=== PATIENT | male | born 1960 | race Caucasian/White ===

== ENCOUNTER 2020-12-12 16:56 | Observation (INO) ==
[2020-12-12 18:10] LABS: Basophils # 0.1 10*3/uL (0.0-0.2); Basophils % 0.3 % (0.0-0.8); Eosinophils # 0.1 10*3/uL (0.0-0.87); Eosinophils % 0.2 % (0.00-10.9); Hematocrit 38.6 VOL% (42.0-52.0); Hemoglobin 13.6 GM/DL (14.0-18.0); Immature Granulocytes % 0.5 %; Immature Granulocytes Absolute 0.11 #; Lymphocytes # 1.5 10*3/uL (1.4-4.0); Lymphocytes % 7.4 % (21.2-54.2); Mean Corpuscular HGB Conc 35.2 GM/DL (32-36); Mean Corpuscular Volume 99.7 FL (87-102); Mean Platelet Volume 9.3 FL (9.6-12.0); Monocytes % 7.4 % (1.7-12.7); Neutrophils % 84.2 % (38.7-73.9); Platelet Count 269 T/CUMM (130-400); Red Blood Count 3.87 MC/CUMM (3.8-5.5); Red Cell Distribution Width 14.1 % (9.3-17.3); White Blood Count 20.8 T/CUMM (4-12)
[2020-12-12 18:31] LABS: Albumin 3.8 G/DL (3.4-5.0); Bilirubin,Total 0.9 MG/DL (0.20-1.00); Calcium 9.1 MG/DL (8.5-10.1); Osmolality,Calculated 262.4 MOS/KG (273-304); Potassium 3.8 MMOL/L (3.5-5.1); Total Protein 7.4 G/DL (6.4-8.2)
[2020-12-12 18:52] LABS: Anisocytosis 2+; Atypical Lymphocytes 1+; Band Neutrophils 8 % (0-10); Lymphocytes 6 % (20-55); Macrocytosis 2+; Microcytosis 1+; Platelet Estimate Normal; Polychromasia 1+; Segmented Neutrophils 82 % (50-85); Total Cells Counted 100
[2020-12-12] MEDS ORDERED: SODIUM CHLORIDE 0.9% 500 ML IV STA (19:39)
[2020-12-12] MEDS ORDERED: ALBUTEROL/IPRATROPIUM 3 ML NEB RESP TX STA (19:39)
[2020-12-12] MEDS ORDERED: ONDANSETRON 4 MG/2 ML VIAL IV STA (19:39)
[2020-12-12 20:54] LABS: Bilirubin,Urine Negative (Negative); Blood, Urine Negative (Negative); Glucose,Urine (UA) Negative (Negative); Ketones,Urine Negative (Negative); Mucus,Urine Occasional /LPF (Occasional); Nitrite,Urine Negative (Negative); Protein,Urine Negative; Urine Appearance CLEAR (Clear); Urine Color Colorless (Yellow); Urine Specific Gravity 1.008 (1.001-1.035); Urine Urobilinogen < 2.0 EU/DL (0.2-1.0)
[2020-12-12] MEDS ORDERED: GLUCAGON 1 MG VIAL IM PRN (21:43)
[2020-12-12] MEDS ORDERED: DOCUSATE SODIUM 100 MG CAPSULE PO PRN (21:43)
[2020-12-12] MEDS ORDERED: ALUMINUM/MAGNES/SIMETH MAX STR 30 ML UDCUP PO PRN (21:43)
[2020-12-12] MEDS ORDERED: ONDANSETRON 4 MG/2 ML VIAL IV PRN (21:43)
[2020-12-12] MEDS ORDERED: hydrALAZINE 20 MG/1 ML VIAL IV PRN (21:43)
[2020-12-12] MEDS ORDERED: DEXTROSE 50% 25 GM/50 ML VIAL IV PRN (21:43)
[2020-12-12] MEDS ORDERED: ACETAMINOPHEN 325 MG TABLET PO PRN (21:43)
[2020-12-12] MEDS ORDERED: guaiFENesin/CODEINE 5 ML LIQUID PO PRN (22:44)
[2020-12-13] MEDS: PIPERACILLIN/TAZOBACTAM 3,375 MG in SODIUM CHLORIDE 0.9% 100 ML IV SCH ×3 (00:35→16:44)
[2020-12-13 04:05] LABS: Basophils # 0.1 10*3/uL (0.0-0.2); Basophils % 0.3 % (0.0-0.8); Eosinophils % 0.2 % (0.00-10.9); Hematocrit 35.2 VOL% (42.0-52.0); Hemoglobin 12.1 GM/DL (14.0-18.0); Immature Granulocytes % 1.1 %; Lymphocytes # 1.1 10*3/uL (1.4-4.0); Lymphocytes % 5.7 % (21.2-54.2); Mean Corpuscular HGB Conc 34.4 GM/DL (32-36); Mean Corpuscular Volume 101.7 FL (87-102); Mean Platelet Volume 9.5 FL (9.6-12.0); Monocytes % 8.4 % (1.7-12.7); Neutrophils % 84.3 % (38.7-73.9); Platelet Count 225 T/CUMM (130-400); Red Blood Count 3.46 MC/CUMM (3.8-5.5); Red Cell Distribution Width 14.5 % (9.3-17.3); White Blood Count 18.5 T/CUMM (4-12)
[2020-12-13 04:16] LABS: INR 1.1
[2020-12-13 04:34] LABS: Calcium 8.6 MG/DL (8.5-10.1); Osmolality,Calculated 268.1 MOS/KG (273-304); Potassium 3.9 MMOL/L (3.5-5.1)
[2020-12-13] MEDS: ALBUTEROL/IPRATROPIUM 3 ML NEB RESP TX SCH ×3 (07:02→18:21)
[2020-12-13] MEDS: FERROUS SULFATE 325 MG TABLET PO SCH (09:14)
[2020-12-13] MEDS: amLODIPine 10 MG TABLET PO SCH (09:14)
[2020-12-13] MEDS: LEVOTHYROXINE 25 MCG TABLET PO SCH (09:14)
[2020-12-13] MEDS ORDERED: PROMETHAZINE 25 MG/1 ML VIAL IM ONE (09:15)
[2020-12-13] MEDS ORDERED: MEPERIDINE 50 MG/1 ML VIAL IM ONE (09:15)
[2020-12-13] MEDS ORDERED: GLYCOPYRROLATE 0.4 MG/2 ML VIAL IM ONE (09:15)
[2020-12-13] MEDS ORDERED: LIDOCAINE 2% 20 ML VIAL RESP TX ONE (09:30)
[2020-12-13] MEDS ORDERED: MIDAZOLAM 10 MG/2 ML VIAL IV ONE (09:30)
[2020-12-13] MEDS ORDERED: LIDOCAINE 1% 20 ML VIAL MISC INJ ONE (09:30)
[2020-12-13] MEDS ORDERED: MIDAZOLAM 2 MG/2 ML VIAL ONE (11:06)
[2020-12-14] MEDS: PIPERACILLIN/TAZOBACTAM 3,375 MG in SODIUM CHLORIDE 0.9% 100 ML IV SCH ×2 (00:43→06:52)
[2020-12-14] MEDS: ALBUTEROL/IPRATROPIUM 3 ML NEB RESP TX SCH ×3 (00:50→13:20)
[2020-12-14 06:17] LABS: Basophils # 0.1 10*3/uL (0.0-0.2); Basophils % 0.4 % (0.0-0.8); Eosinophils # 0.1 10*3/uL (0.0-0.87); Eosinophils % 0.6 % (0.00-10.9); Hematocrit 34.1 VOL% (42.0-52.0); Hemoglobin 11.9 GM/DL (14.0-18.0); Immature Granulocytes % 0.6 %; Immature Granulocytes Absolute 0.07 #; Lymphocytes # 0.8 10*3/uL (1.4-4.0); Lymphocytes % 6.6 % (21.2-54.2); Mean Corpuscular HGB Conc 34.9 GM/DL (32-36); Mean Corpuscular Volume 101.8 FL (87-102); Mean Platelet Volume 10.1 FL (9.6-12.0); Neutrophils % 82.8 % (38.7-73.9); Platelet Count 205 T/CUMM (130-400); Red Blood Count 3.35 MC/CUMM (3.8-5.5); Red Cell Distribution Width 14.3 % (9.3-17.3); White Blood Count 12.5 T/CUMM (4-12)
[2020-12-14 06:26] LABS: Calcium 8.7 MG/DL (8.5-10.1); Potassium 3.6 MMOL/L (3.5-5.1)
[2020-12-14] MEDS: LEVOTHYROXINE 25 MCG TABLET PO SCH (09:28)
[2020-12-14] MEDS: amLODIPine 10 MG TABLET PO SCH (09:28)
[2020-12-14] MEDS: FERROUS SULFATE 325 MG TABLET PO SCH (09:28)
[2020-12-14] MEDS ORDERED: LIDOCAINE 2% VISCOUS 100 ML BOTTLE SWISH/SPIT ONE (09:30)
[2020-12-14 16:11] VITALS: BP 114/56
== END 2020-12-14 16:06 | disposition home or self-care (01) ==
LOC: N.EDINP 16:56 → N.ED 16:56 → N.EDINP 23:55 → N.4E 12-13 00:12
PROVIDERS: ADMIT Internal Medicine; ATTEND Internal Medicine
PROC: BRONCHB (2020-12-13 10:05)